=== PATIENT | female | born 1985 | race Caucasian/White ===

== ENCOUNTER 2018-04-06 00:13 | Emergency (ER) | payer MEDICAID ==
[~2018-04-06] VITALS: Ht 149.9 cm; Wt 58.6 kg
[~2018-04-06 00:13] MED LIST: ADDERALL10 MG PO; AMBIEN 5MG TABLE5 MG PO; DOXYCYCLINE 10100 MG PO; FLAGYL500 MG PO; IBREN600 MG PO; LORTAB 5/500 501 TAB PO; MOTRIN 800800 MG/TAB PO; NO HOME MEDICATIONS; PERCOCET 325 MG1 TA2 PO; RITALIN10 MG PO; SENOKOT S 50 MG1 TAB; SENOKOT S 50 MG1 TAB PO; ULTRAM 50MG TAB50 MG PO; ZITHROMAX500 M2 PO; ZOLOFT 25MG25 MG PO
[2018-04-06 00:22] VITALS: BP 121/58; TEMP 98.7
[2018-04-06 01:04] LABS: BASO # 0.1 (0.0-0.2); BASO % 0.6 % (0.0-2.0); EOS # 0.2 (0.0-0.7); EOS % 2.3 % (0-4.0); GRAN # 5.6 (1.4-6.5); GRAN % 67.8 % (42.2-75.2); HEMOGLOBIN 11.8 g/dl (12.5-16.0); LYMPH # 1.9 (1.2-3.4); LYMPH % 22.4 % (20.0-51.0); MEAN CELL VOLUME 93 fl (80.0-100.0); MEAN CORPUSCULAR HEMOGLOBIN 31 pg (27.0-31.0); MEAN CORPUSCULAR HGB CONC 33 g/dl (33.0-37.0); MEAN PLATELET VOLUME 10.1 fl (7.4-10.4); MONO # 0.6 (0.1-0.6); MONO % 6.7 % (1.7-9.3); PLATELET COUNT 222 K/mm3 (130-400); RED BLOOD COUNT 3.81 M/mm3 (4.10-5.30); REDCELL DISTRIBUTION WIDTH-CV 14.3 % (11.5-14.5)
[2018-04-06 01:18] LABS: HEMATOCRIT 35.5 % (37.0-47.0)
[2018-04-06 01:24] LABS: ALANINE AMINOTRANSFERASE 22 U/L (9-52); ALBUMIN 3.8 gm/dL (3.5-5.0); ALKALINE PHOSPHATASE 87 U/L (50-136); ANION GAP 11 mmol/L (7-16); AST,SGOT 17 U/L (15-37); BILIRUBIN,TOTAL < 0.1 mg/dL (0.0-1.0); BLOOD UREA NITROGEN 12 mg/dL (7-17); C-REACTIVE PROTEIN 1.6 mg/dL (0.0-0.9); CARBON DIOXIDE 25 mmol/L (22-30); CHLORIDE 107 mmol/L (98-107); CREATININE, serum 0.81 mg/dL (0.52-1.25); GLUCOSE 125 mg/dL (74-106); LIPASE 109 U/L (23-300); POTASSIUM 3.7 mmol/L (3.4-5.0); SODIUM 143 mmol/L (137-145); TOTAL PROTEIN 6.8 gm/dL (6.4-8.2)
[2018-04-06 01:37] LABS: COLLECTION METHOD CLEAN CATCH
[2018-04-06 01:50] LABS: MUCOUS Present /lpf; PH 5 (5-8); URINE APPEARANCE Hazy; URINE BACTERIA None Seen /hpf; URINE BILIRUBIN Negative (NEGATIVE); URINE BLOOD 2+ (NEGATIVE); URINE COLOR Yellow; URINE GLUCOSE Negative (NEGATIVE); URINE KETONE Negative (NEGATIVE); URINE LEUKOCYTE ESTERASE Trace (NEGATIVE); URINE NITRATE Negative (NEGATIVE); URINE PROTEIN(semi-quant) Negative (NEGATIVE); URINE UROBILINOGEN Negative (NEGATIVE)
[2018-04-06 02:05] LABS: TRICYCLIC ANTIDEPRESS URINE NEGATIVE
[2018-04-06] MEDS ORDERED: FLAGYL500 MG PO (02:28)
[2018-04-06 02:48] VITALS: PULSE 84
== END 2018-04-06 02:40 | disposition home or self-care (01) ==
LOC: COL.ER 00:13
PROVIDERS: Physician Assistant
DX: N93.9 Abnormal uterine and vaginal bleeding, unspecified (principal); N39.0 Urinary tract infection, site not specified; N76.0 Acute vaginitis; R10.2 Pelvic and perineal pain
CPT/HCPCS: J0696

== ENCOUNTER 2019-04-20 05:35 | Inpatient (IN) | payer MEDICAID ==
[2019-04-20] VITALS (19 sets, daily range): BP systolic 94–133; BP diastolic 51–84; PULSE 64–95; TEMP 97.6–98.5
--- NOTE | 2019-04-20 05:20 | NUR ---
0520- Pt arrived on unit via wheelchair escorted by family. Pt reports contractions starting in the middle of the night, denies any leaking of fluid, vaginal bleeding and reports normal movement. SVE by this RN . EFM and toco monitors started. Vital signs WNL. Pt reports due date 05/04/19-06/04/19. G10 L7. SAB x2 TAB x1. Pt reports she is traveling [place] the [place] and has not seen a doctor for care except for random visits last one approximately 3 weeks ago in [facility] and was told she was 3cm. Pt states she has refused an ultrasound since she did not want to know the sex of the baby. Pt had a c/s with her 3rd child d/t breech and has since had 4 successful . Pt reports she has custody of 2 out of the 7 living children. During assessment pt also reports she uses drugs and alcohol "only on holidays" Pt states "I smoked marijuana, had some alcohol and did cocaine" and reports the last use was 04/16/19. 0535- Spoke with Dr. Kim for an update on pt's status with no care, SVE, ctx pattern and FHR tracing reviewed. Labor admission orders received. Plan of care reviewed with pt and family at the bedside. 0537- IV started, labs obtained, LR and Pen G started per order. See EMAR for details. 0550- Dr. Kim at the bedside. FHR tracing reviewed. Plan of care reviewed with pt and family at the bedside. 0600- Pt states she is having a lot of pressure and feels like the baby is coming. SVE by this RN 2.
[2019-04-20 06:12] LABS: BASO # 0.1 (0.0-0.2); BASO % 0.4 % (0.0-2.0); EOS # 0.1 (0.0-0.7); EOS % 0.6 % (0-4.0); GRAN # 8.6 (1.4-6.5); GRAN % 77.7 % (42.2-75.2); HEMATOCRIT 38.4 % (37.0-47.0); HEMOGLOBIN 12.9 g/dl (12.5-16.0); LYMPH # 1.8 (1.2-3.4); MEAN CELL VOLUME 98 fl (80.0-100.0); MEAN CORPUSCULAR HEMOGLOBIN 33 pg (27.0-31.0); MEAN CORPUSCULAR HGB CONC 34 g/dl (33.0-37.0); MEAN PLATELET VOLUME 10.2 fl (7.4-10.4); MONO # 0.6 (0.1-0.6); MONO % 4.9 % (1.7-9.3); PLATELET COUNT 245 K/mm3 (130-400); RED BLOOD COUNT 3.94 M/mm3 (4.10-5.30); REDCELL DISTRIBUTION WIDTH-CV 14.5 % (11.5-14.5)
--- NOTE | 2019-04-20 06:17 | NUR ---
Pt off EFM to bathroom with standby assist.
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
[2019-04-20] MEDS ORDERED: PRENATAL (06:50)
[2019-04-20 07:51] LABS: TRICYCLIC ANTIDEPRESS URINE NEGATIVE
--- NOTE | 2019-04-20 08:13 | NUR ---
Dr. Vargas on unit. Updated on patient assessment.
[2019-04-20 08:57] LABS: HIV 1/2 Antibodies Non-Reactive; HIV-1p24 Antigen Non-Reactive
--- NOTE | 2019-04-20 09:15 | NUR ---
Patient reports pressure. SVE 10/+1. Physician on unit, notified and requested for impending delivery. RN remains at bedside.
--- NOTE | 2019-04-20 09:25 | NUR ---
09- Dr. Vargas at bedside. Ruelas catheter removed prior to pushing. Pericare given. 924- AROM by Dr. Vargas for moderate amount of clear fluid. Patient pushing with contractions at 925. Moves vertex well. 926- of viable female infant attended by Dr. Vargas. to mother's abdomen then to warmer per mother request. Care of to Ginna Delatorre RN. Apgars 8/9/9. 929- Cord gasses obtained per order and protocol. Sent to lab. Cord stat collected per protocol and sent. 932- Spont. delivery of placenta. Pitocin bolus started at 333 ml/hr/protocol. Fundal massage, vaginal bleeding WNL and fundus at umbilicus. Perineum intact. Pericare given, ice pack applied. Patient updated on plan of care and safety reviewed.
--- NOTE | 2019-04-20 10:15 | NUR ---
Patient refuses to wear BP cuff. RN explained importance of monitoring vital signs in period. Patient continues to refuse.
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
[2019-04-20 16:32] LABS: HEPATITIS B SURFACE ANTIGEN Negative (Negative)
--- NOTE | 2019-04-20 20:50 | NUR ---
2049-PT STATED SHE IS LEAVING NOW SINCE SHE CANT BE WITH HER BABY. PT ENCOURAGED TO STAY AND TO TAKE CARE OF HERSELF AND PT STATE I AM GOING TO LEAVE NOW WITH OR WITHOUT AN ORDER. ORDER RECEIVED FROM DR SALAS FOR DISCHARGE OF PT AND PT REFUSED TO FILL OUT CERTIFICATE UNTIL TOMORROW. PT STATED SHE WILL RETURN TOMORROW MORNING AND WILL DO CERTIFICATE AT THIS TIME.
--- NOTE | 2019-04-20 21:00 | NUR ---
2100-PT WALKED OFF UNIT WITH MOTHER AFTER SIGNING PAPERS PRIOR AND DID NOT WAIT FOR STAFF TO WALK HER TO CAR.
[2019-04-21 11:12] LABS: COLLECTION METHOD CATHETER
[2019-04-21 11:25] LABS: MUCOUS Present /lpf; PH 7 (5-8); URINE APPEARANCE Hazy; URINE BACTERIA None Seen /hpf; URINE BILIRUBIN Negative (NEGATIVE); URINE BLOOD 2+ (NEGATIVE); URINE COLOR Yellow; URINE GLUCOSE Negative (NEGATIVE); URINE KETONE Negative (NEGATIVE); URINE LEUKOCYTE ESTERASE Negative (NEGATIVE); URINE NITRATE Negative (NEGATIVE); URINE PROTEIN(semi-quant) Negative (NEGATIVE); URINE RBC >50 /hpf; URINE UROBILINOGEN Negative (NEGATIVE)
[2019-04-22 03:03] LABS: RPR (VDRL) XXX
== END 2019-04-20 21:00 | disposition home or self-care (01) | DRG 807 ==
LOC: LDRO 05:35 → LDR 05:53 → OB 12:35
PROVIDERS: ADMIT Obstetrics & Gynecology
PROC: 10E0XZZ Delivery of Products of Conception, External Approach (ICD-10-PCS; principal; 2019-04-20)
DX: O99.324 Drug use complicating childbirth (principal); Z37.0 Single live birth; F10.10 Alcohol abuse, uncomplicated; F14.10 Cocaine abuse, uncomplicated; F15.10 Other stimulant abuse, uncomplicated; Z3A.37 37 weeks gestation of pregnancy
CPT/HCPCS: J2540; J2590; J7120

== ENCOUNTER 2019-06-20 15:29 | Emergency (ER) | payer MEDICAID ==
[~2019-06-20] VITALS: Ht 152.4 cm; Wt 60.9 kg
[~2019-06-20 15:29] MED LIST changes: +PRENATAL
[2019-06-20 15:33] VITALS: BP 151/88; PULSE 80; TEMP 98.9
[2019-06-20 15:55] LABS: COLLECTION METHOD CLEAN CATCH
[2019-06-20 16:14] LABS: MUCOUS Present /lpf; PH 6 (5-8); URINE APPEARANCE Hazy; URINE BACTERIA None Seen /hpf; URINE BILIRUBIN Negative (NEGATIVE); URINE BLOOD Negative (NEGATIVE); URINE COLOR Yellow; URINE GLUCOSE Negative (NEGATIVE); URINE KETONE Negative (NEGATIVE); URINE LEUKOCYTE ESTERASE Negative (NEGATIVE); URINE NITRATE Negative (NEGATIVE); URINE PROTEIN(semi-quant) Negative (NEGATIVE); URINE RBC 0-2 /hpf; URINE UROBILINOGEN Negative (NEGATIVE)
== END 2019-06-20 16:56 | disposition left against medical advice (07) ==
LOC: COL.ER 15:29
PROVIDERS: Emergency Medicine
DX: R10.9 Unspecified abdominal pain (principal)

== ENCOUNTER 2019-06-23 11:28 | Emergency (ER) | payer MEDICAID ==
[~2019-06-23] VITALS: Ht 152.4 cm; Wt 61.4 kg
[2019-06-23 11:31] VITALS: TEMP 99.3
[2019-06-23 11:57] LABS: COLLECTION METHOD CLEAN CATCH
[2019-06-23 12:08] LABS: PH 9 (5-8); URINE APPEARANCE Clear; URINE BACTERIA Rare /hpf; URINE BILIRUBIN Negative (NEGATIVE); URINE BLOOD Negative (NEGATIVE); URINE COLOR Yellow; URINE GLUCOSE Negative (NEGATIVE); URINE KETONE Negative (NEGATIVE); URINE LEUKOCYTE ESTERASE 1+ (NEGATIVE); URINE NITRATE Negative (NEGATIVE); URINE PROTEIN(semi-quant) Negative (NEGATIVE); URINE RBC 0-2 /hpf; URINE UROBILINOGEN Negative (NEGATIVE)
[2019-06-23 12:50] LABS: ALANINE AMINOTRANSFERASE 14 U/L (9-52); ALBUMIN 4.6 gm/dL (3.5-5.0); ALKALINE PHOSPHATASE 76 U/L (50-136); ANION GAP 7 mmol/L (7-16); AST,SGOT 19 U/L (15-37); BILIRUBIN,TOTAL 0.3 mg/dL (0.0-1.0); BLOOD UREA NITROGEN 9 mg/dL (7-17); C-REACTIVE PROTEIN < 0.5 mg/dL (0.0-0.9); CALCIUM 9.4 mg/dL (8.4-10.2); CARBON DIOXIDE 26 mmol/L (22-30); CHLORIDE 105 mmol/L (98-107); CREATININE, serum 0.54 (0.52-1.25); GLUCOSE 90 mg/dL (74-106); POTASSIUM 4.1 mmol/L (3.4-5.0); SODIUM 139 mmol/L (137-145); TOTAL PROTEIN 7.3 gm/dL (6.4-8.2)
[2019-06-23] MEDS ORDERED: FLAGYL500 MG PO (13:53)
[2019-06-23 13:55] VITALS: BP 148/82; PULSE 84
[2019-06-23 15:26] LABS: HEMOGLOBIN 12.3 g/dl (12.5-16.0); MEAN CORPUSCULAR HEMOGLOBIN 30 pg (27.0-31.0); RED BLOOD COUNT 4.06 M/mm3 (4.10-5.30)
[2019-06-23 15:27] LABS: BASO % 0.4 % (0.0-2.0); EOS # 0.1 (0.0-0.7); EOS % 1.9 % (0-4.0); GRAN # 3.5 (1.4-6.5); GRAN % 64.8 % (42.2-75.2); HEMATOCRIT 38.9 % (37.0-47.0); LYMPH # 1.5 (1.2-3.4); LYMPH % 27.1 % (20.0-51.0); MEAN CELL VOLUME 96 fl (80.0-100.0); MEAN CORPUSCULAR HGB CONC 32 g/dl (33.0-37.0); MEAN PLATELET VOLUME 10.9 fl (7.4-10.4); MONO # 0.3 (0.1-0.6); MONO % 5.8 % (1.7-9.3); PLATELET COUNT 206 K/mm3 (130-400)
== END 2019-06-23 14:00 | disposition home or self-care (01) ==
LOC: COL.ER 11:28
PROVIDERS: Physician Assistant
DX: N76.0 Acute vaginitis (principal); Z98.890 Other specified postprocedural states
CPT/HCPCS: J1885

== ENCOUNTER 2020-04-21 07:39 | Day surgery (SDC) | payer MEDICAID ==
[~2020-04-21] VITALS: Ht 152.4 cm; Wt 68.2 kg
[2020-04-21 07:43] VITALS: TEMP 98.5
[2020-04-21 08:09] LABS: BASO % 0.3 % (0.0-2.0); EOS # 0.2 (0.0-0.7); EOS % 1.8 % (0-4.0); GRAN % 76.6 % (42.2-75.2); HEMOGLOBIN 11.5 g/dl (12.5-16.0); LYMPH # 1.6 (1.2-3.4); LYMPH % 15.2 % (20.0-51.0); MEAN CELL VOLUME 94 fl (80.0-100.0); MEAN CORPUSCULAR HEMOGLOBIN 30 pg (27.0-31.0); MEAN CORPUSCULAR HGB CONC 32 g/dl (33.0-37.0); MEAN PLATELET VOLUME 10.1 fl (7.4-10.4); MONO # 0.6 (0.1-0.6); MONO % 5.8 % (1.7-9.3); PLATELET COUNT 190 K/mm3 (130-400); REDCELL DISTRIBUTION WIDTH-CV 13.5 % (11.5-14.5)
[2020-04-21 08:11] LABS: HEMATOCRIT 35.7 % (37.0-47.0)
[2020-04-21 08:16] LABS: ALBUMIN 4.1 gm/dL (3.5-5.0); BILIRUBIN,TOTAL 0.5 mg/dL (0.0-1.0); CALCIUM 8.8 mg/dL (8.4-10.2); CREATININE, serum 0.52 (0.52-1.25); TOTAL PROTEIN 6.8 gm/dL (6.4-8.2)
[2020-04-21 09:50] LABS: COLLECTION METHOD CLEAN CATCH
[2020-04-21 10:05] LABS: TRICYCLIC ANTIDEPRESS URINE NEGATIVE
[2020-04-21 10:07] LABS: PH 7 (5-8); SQUAMOUS EPITHELIAL 0-2 /hpf; URINE APPEARANCE Clear; URINE BACTERIA Rare /hpf; URINE BILIRUBIN Negative (NEGATIVE); URINE BLOOD 2+ (NEGATIVE); URINE COLOR Red; URINE GLUCOSE Negative (NEGATIVE); URINE KETONE Negative (NEGATIVE); URINE LEUKOCYTE ESTERASE Negative (NEGATIVE); URINE NITRATE Positive (NEGATIVE); URINE PROTEIN(semi-quant) 2+ (NEGATIVE); URINE RBC >50 /hpf; URINE UROBILINOGEN Negative (NEGATIVE)
[2020-04-21 12:28] VITALS: BP 115/48; PULSE 82
--- NOTE | 2020-04-21 12:28 | NUR ---
Patient to room 4 per cart from surgery accompanied by Vlad ZARCO and Doris TAPIA and is awake and talking. Denies pain or nausea. IV fluids infusing and site is free of redness. Temp 97.5. Minimal vaginal discharge noted on pad. Siderails up x2 and call light in reach. Allowed to rest.
[2020-04-21 12:43] VITALS: BP 100/56; PULSE 74
--- NOTE | 2020-04-21 12:43 | NUR ---
Room air sats 99%. Continues to rest without complaints of pain or nausea.
[2020-04-21 12:58] VITALS: BP 92/40; PULSE 75
--- NOTE | 2020-04-21 12:58 | NUR ---
Room air sats 100%. Drinking water and denies pain or nausea.
[2020-04-21 13:13] VITALS: BP 92/45; PULSE 69
--- NOTE | 2020-04-21 13:13 | NUR ---
Continues to scant vaginal discharge. Denies pain or nausea.
--- NOTE | 2020-04-21 13:30 | NUR ---
Assisted up to the bathroom and is able to void. Requests to dress self.
[2020-04-21] MEDS ORDERED: PERCOCET 325 MG1 TA2 PO (13:31)
[2020-04-21] MEDS ORDERED: MOTRIN 800800 MG/TAB PO (13:31)
--- NOTE | 2020-04-21 13:43 | NUR ---
Dismissal instructions given and voices understanding of home cares. Provided scripts for Percocet and Motrin. Follow up appointment card provided.
--- NOTE | 2020-04-21 13:50 | NUR ---
Patient dismissed to home driven by friend and taken to the emergency room entrance per wheelchair and assisted into vehicle with instructions in hand.
== END 2020-04-21 13:50 | disposition home or self-care (01) ==
LOC: COL.ER 07:39 → SDCO 12:01
PROVIDERS: Family Medicine
DX: O03.4 Incomplete spontaneous abortion without complication (principal); F90.9 Attention-deficit hyperactivity disorder, unspecified type; F41.9 Anxiety disorder, unspecified; F32.9 Major depressive disorder, single episode, unspecified; F14.21 Cocaine dependence, in remission; F11.11 Opioid abuse, in remission; F43.10 Post-traumatic stress disorder, unspecified; Z87.891 Personal history of nicotine dependence; Z80.3 Family history of malignant neoplasm of breast; Z82.49 Family history of ischemic heart disease and other diseases of the circulatory system
CPT/HCPCS: J1885; J2405; J2704; J3010; J7120

== ENCOUNTER 2022-05-04 15:25 | Emergency (ER) | payer SELFPAY ==
[~2022-05-04] VITALS: Ht 152.4 cm; Wt 53.6 kg
[2022-05-04 17:28] VITALS: BP 110/74; PULSE 84; TEMP 98
== END 2022-05-04 17:33 | disposition home or self-care (01) ==
LOC: COL.ER 15:25
DX: U07.1 COVID-19 (principal); Z28.310 Unvaccinated for COVID-19

== ENCOUNTER 2023-06-27 14:40 | Emergency (ER) | payer MEDICAID ==
[~2023-06-27] VITALS: Ht 152.4 cm; Wt 54.5 kg
[2023-06-27 14:51] VITALS: TEMP 99.1
[2023-06-27 15:52] LABS: COLLECTION METHOD CLEAN CATCH
[2023-06-27 15:56] LABS: BASO % 0.5 % (0.0-2.0); EOS % 0.5 % (0.0-4.0); GRAN # 5.4 K/mm3 (1.4-6.5); GRAN % 81.9 % (42.2-75.2); HEMOGLOBIN 10.3 g/dl (12.5-16.0); LYMPH # 0.5 K/mm3 (1.2-3.4); LYMPH % 7.2 % (20.0-51.0); MEAN CELL VOLUME 82 fl (80.0-100.0); MEAN CORPUSCULAR HEMOGLOBIN 23 pg (27-31); MEAN CORPUSCULAR HGB CONC 29 g/dl (33.0-37.0); MEAN PLATELET VOLUME 9.7 fl (7.4-10.4); MONO # 0.6 K/mm3 (0.1-0.6); MONO % 9.6 % (1.7-9.3); PLATELET COUNT 260 K/mm3 (130-400); RED BLOOD COUNT 4.44 M/mm3 (4.10-5.30); REDCELL DISTRIBUTION WIDTH-CV 18.2 % (11.5-14.5)
[2023-06-27 15:57] LABS: HEMATOCRIT 36.2 % (37.0-47.0)
[2023-06-27 16:01] LABS: PH 5.5 (5.0-8.5); URINE APPEARANCE Cloudy (CLEAR/HAZY); URINE BLOOD 2+ (NEGATIVE); URINE COLOR Amber (YELLOW); URINE GLUCOSE Negative (NEGATIVE); URINE KETONE 1+ (NEGATIVE); URINE NITRATE Positive (NEGATIVE); URINE PROTEIN(semi-quant) 2+ (NEGATIVE); URINE UROBILINOGEN 0.2 E.U/dL (0.2-1.0)
[2023-06-27 16:03] LABS: MUCOUS Present (NOT PRESENT); URINE BACTERIA Many /hpf (NONE SEEN)
[2023-06-27 16:07] LABS: TRICYCLIC ANTIDEPRESS URINE NEGATIVE
[2023-06-27 16:12] LABS: ALBUMIN 3.5 gm/dL (3.5-5.0); BILIRUBIN,TOTAL 0.3 mg/dL (0.2-1.2); C-REACTIVE PROTEIN 12.58 mg/dL (0.00-0.50); CALCIUM 9.5 mg/dL (8.4-10.2); CREATININE, serum 0.78 mg/dL (0.57-1.11); POTASSIUM 4.2 mmol/L (3.5-4.5); TOTAL PROTEIN 7.6 gm/dL (6.2-8.1)
[2023-06-27 16:17] LABS: STREP SCREEN NEGATIVE
[2023-06-27] MEDS ORDERED: AMOXICILLIN 8751 TAB PO (18:14)
[2023-06-27 18:46] VITALS: BP 132/72; PULSE 98
== END 2023-06-27 18:47 | disposition home or self-care (01) ==
LOC: COL.ER 14:40
PROVIDERS: Nurse Practitioner
DX: J03.80 Acute tonsillitis due to other specified organisms (principal); F17.290 Nicotine dependence, other tobacco product, uncomplicated; F17.210 Nicotine dependence, cigarettes, uncomplicated; Z28.310 Unvaccinated for COVID-19
CPT/HCPCS: J1100; J7030; Q9967